=== PATIENT | female | born 1955 | race Caucasian/White ===

== ENCOUNTER 2019-05-01 14:27 | Emergency (ER) | payer BC ==
[~2019-05-01] VITALS: Ht 177.8 cm; Wt 108.2 kg
[2019-05-01] MEDS ORDERED: SYNT150T PO (14:44)
[2019-05-01] MEDS ORDERED: VITA500045 PO (14:44)
[2019-05-01] MEDS ORDERED: OXYC1TAB23 PO (16:40)
[2019-05-01 17:20] VITALS: BP 132/71
--- NOTE | 2019-05-01 19:48 | REP ---
REASON: Pain after trauma. There is a comminuted fracture of the humeral head. The glenohumeral relationship is maintained. The acromioclavicular joint is within normal limits. There are no additional fractures. IMPRESSION:Slightly comminuted proximal humeral fracture involving the greater tuberosity. Electronically Signed by Praveen Rice DO 05/02/2019 10:44 A
== END 2019-05-01 17:21 | disposition home or self-care (01) ==
LOC: M ED 14:27
DX: S42.301A Unspecified fracture of shaft of humerus, right arm, initial encounter for closed fracture (principal); X50.0XXA Overexertion from strenuous movement or load, initial encounter